=== PATIENT | male | born 1960 | race Caucasian/White ===

== ENCOUNTER 2017-03-01 21:03 | Emergency (ER) | payer OTHER ==
[~2017-03-01] VITALS: Ht 182.9 cm; Wt 145.5 kg
[~2017-03-01 21:03] MED LIST: AMOXICILLIN500 M1 PO; LEXAPRO20 MG PO; LISINOPRIL20 MG G-TUBE; LOPRESSOR25 MG PO; MICROZIDE12.5 MG PO; TYLENOL WITH C1 EACH PO; ZESTRIL20 MG PO
[2017-03-01] MEDS ORDERED: FLEXERIL10 MG PO (21:16)
[2017-03-01] MEDS ORDERED: NAPROSYN500 MG PO (21:16)
[2017-03-01] MEDS ORDERED: MEDROL DOSEPAK4 MG PO (21:16)
[2017-03-01 21:38] VITALS: BP 168/127
== END 2017-03-01 21:39 | disposition home or self-care (01) ==
LOC: EXP 21:03 → EME 21:03 → EXP 21:39
DX: M54.5 Low back pain (principal)
CPT/HCPCS: 99281; 99283; J1100